=== PATIENT | female | born 1985 ===

== ENCOUNTER 2021-09-17 05:25 | Inpatient (IN) | payer MEDICAID ==
[2021-09-17] MEDS ORDERED: Methylergonovine 0.2 MG/1 ML Amp IM PRN (05:33)
[2021-09-17] MEDS ORDERED: Sodium Chloride 0.9% 10 ML Syringe FLUSH PRN (05:33)
[2021-09-17] MEDS ORDERED: Carboprost Tromethamine 250 MCG/1 ML Amp IM PRN (05:33)
[2021-09-17] MEDS ORDERED: Misoprostol 200 MCG Tab PO PRN (05:33)
[2021-09-17] MEDS ORDERED: Sodium Chloride 0.9% 2.5 ML Syringe FLUSH PRN (05:33)
[2021-09-17] MEDS ORDERED: Citric Acid/Sodium Citrate Solution 30 ML Cup PO ONE (05:33)
[2021-09-17] MEDS ORDERED: Tranexamic Acid 1,000 MG in Sodium Chloride 0.9% 100 ML IV PRN (05:33)
[2021-09-17] MEDS ORDERED: Ondansetron 4 MG/2 ML SDV IVPUSH PRN ×3 (05:33→07:21)
[2021-09-17] MEDS ORDERED: Butorphanol 1 MG/ML SDV IVPUSH PRN (05:33)
[2021-09-17] MEDS ORDERED: ceFAZolin 2 GM in Premix Bag 1 BAG IV ONE (05:33)
[2021-09-17] MEDS ORDERED: Lidocaine 1% 50 ML MDV INJECT PRN (05:33)
[2021-09-17] MEDS ORDERED: Sodium Chloride 0.9% 20 ML SDV IV PRN (05:33)
[2021-09-17] MEDS ORDERED: Water For Irrigation,Sterile 1,000 ML Container IRR PRN (05:33)
[2021-09-17] MEDS ORDERED: Oxytocin/0.9 % Sodium Chloride 30 UNIT/500 ML BAG IV SCH (05:45)
[2021-09-17] MEDS ORDERED: Lactated Ringers 1,000 ML IV SCH ×2 (05:45→09:45)
[2021-09-17] MEDS: Lactated Ringers 1,000 ML IV SCH ×2 (06:45→08:03)
[2021-09-17] MEDS ORDERED: HYDROmorphone 1 MG/ML Syringe IVPUSH PRN (07:21)
[2021-09-17] MEDS ORDERED: Naloxone 0.4 MG/ML SDV IVPUSH PRN (07:21)
[2021-09-17] MEDS ORDERED: Morphine 4 MG/ML VIAL IVPUSH PRN (07:21)
[2021-09-17] MEDS ORDERED: fentaNYL 100 MCG/2 ML SDV IVPUSH PRN ×2 (07:21)
[2021-09-17] MEDS ORDERED: Albuterol 0.083% 2.5 MG/3 ML Neb Soln NEB PRN (07:21)
[2021-09-17] MEDS ORDERED: Metoclopramide 10 MG/2 ML SDV IVPUSH PRN (07:21)
[2021-09-17] MEDS ORDERED: ePHEDrine 50 MG/ML SDV IVPUSH PRN (07:21)
[2021-09-17] MEDS ORDERED: diphenhydrAMINE 50 MG/ML SDV IVPUSH PRN (07:21)
[2021-09-17] MEDS ORDERED: fentaNYL 100 MCG/2 ML SDV ONE (07:23)
[2021-09-17] MEDS ORDERED: Morphine PF 10 MG/10 ML SDV ONE (07:23)
[2021-09-17] MEDS ORDERED: Dexamethasone 4 MG/ML 5 ML MDV ONE (07:37)
[2021-09-17] MEDS ORDERED: Phenylephrine 1% 10 MG/ML SDV ONE (07:37)
[2021-09-17] MEDS ORDERED: Oxytocin 10 Units/1 ML SDV ONE ×3 (07:37)
[2021-09-17] MEDS ORDERED: Lidocaine 2% 100 MG/5 ML Syringe ONE (07:38)
[2021-09-17] MEDS ORDERED: ceFAZolin 1 GM Vial ONE ×2 (07:38)
[2021-09-17] MEDS ORDERED: Octyl 2-Cyanoacrylate 1 Tube ONE (07:42)
[2021-09-17] MEDS ORDERED: Ketorolac 30 MG/ML SDV ONE (09:40)
[2021-09-17] MEDS ORDERED: Misoprostol 200 MCG Tab RECTAL PRN (09:43)
[2021-09-17] MEDS ORDERED: Lanolin 100% Cream 7 GM Tube TOP PRN (09:43)
[2021-09-17] MEDS ORDERED: Bisacodyl 10 MG Supp RECTAL PRN (09:43)
[2021-09-17] MEDS ORDERED: Acetaminophen/oxyCODONE 325-5 MG Tab PO PRN ×2 (09:43)
[2021-09-17] MEDS ORDERED: Ibuprofen 800 MG Tab PO PRN (09:43)
[2021-09-17] MEDS: Ketorolac 30 MG/ML SDV IVPUSH SCH ×3 (11:56→23:48)
[2021-09-17] MEDS ORDERED: Acetaminophen 1,000 MG in Premix Bag 1 BAG IV ONE (15:00)
[2021-09-17] MEDS: Docusate Sodium 100 MG Cap PO SCH (20:30)
[2021-09-18] MEDS: Ketorolac 30 MG/ML SDV IVPUSH SCH ×2 (05:17→11:53)
[2021-09-18] MEDS: Docusate Sodium 100 MG Cap PO SCH ×2 (09:36→20:46)
[2021-09-19] MEDS: Acetaminophen/oxyCODONE 325-5 MG Tab PO PRN ×2 (05:25→11:40)
[2021-09-19] MEDS: Docusate Sodium 100 MG Cap PO SCH (08:10)
[2021-09-19 12:58] VITALS: BP 127/83; PULSE 69
== END 2021-09-19 15:14 | disposition home or self-care (01) | DRG 787 ==
LOC: MW.OB 05:25
PROVIDERS: ADMIT Obstetrics & Gynecology; ATTEND Obstetrics & Gynecology
PROC: 10D00Z1 Extraction of Products of Conception, Low, Open Approach (ICD-10-PCS; principal; 2021-09-17)
DX: O34.211 Maternal care for low transverse scar from previous cesarean delivery (principal); O98.52 Other viral diseases complicating childbirth; Z3A.39 39 weeks gestation of pregnancy; Z37.0 Single live birth; Z88.8 Allergy status to other drugs, medicaments and biological substances; O99.214 Obesity complicating childbirth; B00.9 Herpesviral infection, unspecified; Z20.822 Contact with and (suspected) exposure to COVID-19
CPT/HCPCS: 36415; 85027; 86592; 86850; 86900; 86901; A9270-GY; J0131; J0690; J1100; J1200; J1885; J2274; J2370; J2590; J3010; J7030; J7120; U0002